=== PATIENT | male | born 1980 | race Two or more races ===

== ENCOUNTER → 2019-10-24 | Outpatient (CLI) | payer BC | END | disposition home or self-care (01) | LOC: LABWHC1 08:19 | PROVIDERS: ATTEND Internal Medicine | DX: Z11.59 Encounter for screening for other viral diseases (principal) ==

== ENCOUNTER → 2019-10-28 | Day surgery (SDC) | payer BC ==
[2019-10-24 11:39] VITALS: BMI 21.8
[~2019-10-28] MED LIST: LACTATED RINGERS 1,000 ML IV SCH; LIDOCAINE 1% (10MG/ML) FOR IV START INTRADERMA PRN; PROPOFOL 10 MG/ML 20 ML VIAL IV ONE
[2019-10-28 10:19] VITALS: RESP 16; TEMP 98.2
--- NOTE | 2019-10-28 11:36 | P.PCN ---
Date of Procedure: 10/28/19 Description of Procedure: Brief history: Patient is a pleasant 31-year-old male presenting for evaluation of abdominal pain in the right upper quadrant and left upper quadrant as well as unintentional weight loss and altered bowel function. He reports 40 pounds of weight loss in 1 year. Procedure performed: Esophagogastroduodenoscopy with biopsy Colonoscopy with biopsy Estimated blood loss: Minimal. Preoperative diagnosis: Epigastric abdominal pain, change in bowel habits, unintentional weight loss Anesthesia: MAC Procedure: After informed consent was obtained from the patient was brought into the endoscopy unit and IV sedation was administered by anesthesia under continuous monitoring. Initially upper endoscopy was done. The Olympus GF 190 video endoscope was inserted into the mouth and esophagus intubated without any difficulty and was gradually advanced into the stomach and duodenum and carefully examined. The bulb and second part of the duodenum appeared normal, with biopsies taken to rule out celiac sprue. The scope was then withdrawn into the stomach adequately insufflated with air and upon careful examination the antrum and body, cardia and fundus appeared normal, except for some mild scattered erythema in the antrum and body suggestive of mild gastritis with biopsies taken. The scope was then withdrawn into the esophagus. The GE junction was located at 42 cm to the incisors, and appeared normal with biopsies taken to rule out reflux esophagitis. It appeared regular with no erythema erosions or ulcerations. Rest of the esophagus appeared normal. Patient tolerated the procedure well. At this time the patient continued to remain sedation. Initial digital rectal examination was normal. Olympus CF 190 video colonoscope was then inserted into the rectum and gradually advanced to the cecum without any difficulty. Careful examination was performed as the scope was gradually being withdrawn. The prep was excellent. The cecum, ascending colon, transverse colon, descending colon, sigmoid colon and rectum appeared normal, with random biopsies taken of the right and left colon to rule out microscopic colitis or other etiology of symptoms of altered bowel function. Terminal ileum was intubated and appeared normal with biopsies taken. Retroflexion was performed in the rectum and no lesions were noted, with low-grade internal hemorrhoids noted. Patient tolerated the procedure well. Impression: 1. Mild gastritis antrum body, biopsied. Biopsies of the duodenum and GE junction. 2. Normal-appearing colon from rectum to cecum and normal appearing terminal ileum with random biopsies taken of the right colon, left colon and terminal ileum due to altered bowel function. Low-grade internal hemorrhoids. Recommendations: Findings of this examination were discussed with the patient. Okay to resume medications. Okay to resume diet. Await pathology from biopsies. Patient should follow-up in gastroenterology clinic the next 1-2 weeks for results of biopsies for further assessment of his symptoms. Would recommend repeat colonoscopy in the future for screening purposes.
[2019-10-28 11:54] VITALS: BP 163/92; PULSE 49
== END ==
LOC: ORWHC2ENDO 09:50
PROVIDERS: ATTEND Internal Medicine
DX: K29.50 Unspecified chronic gastritis without bleeding (principal); K21.0 Gastro-esophageal reflux disease with esophagitis; R19.4 Change in bowel habit; K64.8 Other hemorrhoids; F17.210 Nicotine dependence, cigarettes, uncomplicated; Z79.899 Other long term (current) drug therapy; Z98.890 Other specified postprocedural states
CPT/HCPCS: 88305; 45380; 43239; J2704

== ENCOUNTER → 2020-05-06 | Outpatient (CLI) | payer BC ==
--- NOTE | 2020-05-06 16:24 | US ---
EXAMINATION TYPE: US abdomen complete DATE OF EXAM: 05/06/2020 COMPARISON: NONE CLINICAL HISTORY: R10.11 Right upper quadrant pain. EXAM MEASUREMENTS: Liver Length: 13.3 cm Gallbladder Wall: 0.2 cm CBD: 0.4 cm Spleen: Not visualized Right Kidney: 10.0 x 4.0 x 6.2 cm Left Kidney: 11.8 x 5.2 x 4.7 cm Pancreas: Tail obscured by overlying bowel gas, visualized portions wnl Liver: wnl Gallbladder: wnl Evidence for sonographic Christensen's sign: No CBD: wnl Spleen: Not visualized Right Kidney: No hydronephrosis or masses seen Left Kidney: No hydronephrosis or masses seen Upper IVC: wnl Abd Aorta: wnl IMPRESSION: 1. Visualized abdomen appears unremarkable. 2. Spleen could not be identified during this exam. This may be related to bowel gas left upper quad rant.
== END | disposition home or self-care (01) ==
LOC: RADUSWWP 12:38
PROVIDERS: ATTEND Family Medicine
DX: R10.11 Right upper quadrant pain (principal)
CPT/HCPCS: 76700

== ENCOUNTER → 2020-06-02 | Outpatient (CLI) | payer BC ==
--- NOTE | 2020-06-03 04:52 | CT ---
EXAMINATION TYPE: CT abdomen pelvis w con DATE OF EXAM: 06/02/2020 COMPARISON: Correlation ultrasound 05/06/2020 HISTORY: 40-year-old male with abdominal pain TECHNIQUE: Contiguous axial scanning of the abdomen and pelvis following administration of 100 ml Iso lissett 300 IV contrast. Delayed images through the kidneys and coronal/sagittal reconstructions perform ed. CT DLP: 463.2 mGycm Automated exposure control for dose reduction was used. FINDINGS: Heart normal size without pericardial effusion. Lung bases clear without pleural effusion. Liver borderline in size at 17.7 cm. Some peripheral wedge-shaped enhancement along the anterior left liver lobe suggesting vascular shunting. This enhancement does not persist on the delayed kidney grace ges. No biliary ductal dilatation. Portal venous system is patent. Gallbladder, adrenal glands, kidneys, spleen, and pancreas appear within normal limits. No dilated small bowel, free fluid, or free air. No mesenteric or retroperitoneal lymphadenopathy. Normal appendix on coronal image 28. Oral contrast progressed to the rectum. No significant stool bur den. No pericolonic inflammatory change. Bladder is urine distended. Prostate gland measures 3.9 cm wide. No abnormal fluid collection in the pelvis or pelvic lymphadenopathy. Bones: There is mild degenerative disc disease at L5-S1 along with a right paracentral disc herniatio n that may abut the traversing right S1 nerve root, axial image 47. IMPRESSION: 1. BORDERLINE HEPATOMEGALY AT 17.7 CM. 2. OTHERWISE, NO ACUTE INFLAMMATORY PROCESS IDENTIFIED IN THE ABDOMEN OR PELVIS TO EXPLAIN THE PATIEN T'S SYMPTOMS. 3. RIGHT PARACENTRAL DISC HERNIATION AT L5-S1 MAY ABUT THE TRAVERSING RIGHT S1 NERVE ROOT. CORRELATE FOR ANY CORRESPONDING RADICULAR SYMPTOMS.
== END | disposition home or self-care (01) ==
LOC: RADCTMAIN 17:19
PROVIDERS: ATTEND Family Medicine
DX: R16.0 Hepatomegaly, not elsewhere classified (principal)
CPT/HCPCS: 74177; Q9967